=== PATIENT | female | born 1990 | race Caucasian/White ===

== ENCOUNTER 2021-10-15 15:54 | Emergency (ER) | payer OTHER ==
[2021-10-15] MEDS ORDERED: Acetaminophen 500 MG TAB ONE (16:43)
[2021-10-15 17:13] LABS: Bilirubin Neg (Negative); Blood, Urine 10 (Negative); Clarity Clear (Clear); Glucose, Urine (Dipstick) Normal (Negative); Ketone, Urine 50 mg/dL (Negative); Leukocyte Negative (Negative); Nitrite Negative (Negative); Protein, Urine (Dipstick) 15 mg/dl (Neg-Trace); Specific Gravity, Urine 1.005 (1.002-1.036); Urobilinogen Normal mg/dL (Less than 2); pH, Urine 6.5 (5.0-9.0)
[2021-10-15 17:21] LABS: RBC/HPF 0-3 HPF (0-3); WBC/HPF 0-3 HPF (0-3)
[2021-10-15 17:22] LABS: Bacteria/HPF 2+ HPF (None Seen)
[2021-10-15 17:23] LABS: SARS-CoV-2 NAA Rapid Test Not Detected (NotDetected)
== END 2021-10-15 17:55 | disposition home or self-care (01) ==
LOC: CSHERS 15:54
DX: O98.512 Other viral diseases complicating pregnancy, second trimester (principal); B34.9 Viral infection, unspecified; Z3A.20 20 weeks gestation of pregnancy; Z20.822 Contact with and (suspected) exposure to COVID-19
CPT/HCPCS: 71046; 81003; 81015; 87086; U0002

== ENCOUNTER 2022-02-11 11:41 | Outpatient (CLI) | payer OTHER | END 2022-02-11 11:42 | disposition home or self-care (01) | LOC: CSHLAB 11:41 | PROVIDERS: ATTEND Obstetrics & Gynecology | DX: Z01.812 Encounter for preprocedural laboratory examination (principal); Z20.822 Contact with and (suspected) exposure to COVID-19 | CPT/HCPCS: 85014; 85018; 85049; 86780; 86850; 86900; 86901; 87340; U0002 ==

== ENCOUNTER 2022-02-12 09:52 | Inpatient (IN) | payer OTHER ==
[2022-02-11 13:39] LABS: Hemoglobin 11.8 g/dL (12.0-15.5); Platelet Count 315 10x3/uL (150-450)
[2022-02-11 14:05] LABS: SARS-CoV-2 NAA Rapid Test Not Detected (NotDetected)
[2022-02-11 14:08] LABS: Syphilis Antibody Nonreactive (Nonreactive); Syphilis Antibody Index 0.06 S/CO (<1.00 Non-Reactive)
[2022-02-11 14:10] LABS: HBSAg Index 0.17 S/CO (0-0.99); Hep B Surf Ag Non-Reactive S/CO (NonReactive)
[2022-02-12] MEDS ORDERED: Promethazine HCl 25 MG/ML VIAL IM PRN ×2 (10:02→11:59)
[2022-02-12] MEDS ORDERED: Ondansetron PF 4 MG/2 ML Vial IVP PRN ×2 (10:02→11:59)
[2022-02-12] MEDS ORDERED: Famotidine/PF 20 mg/2ml Vial SLOW IVP PRN (10:02)
[2022-02-12] MEDS ORDERED: Bicitra 30 ML UDCUP PO PRN (10:02)
[2022-02-12] MEDS ORDERED: hydrALAZINE 20 MG/ML VIAL SLOW IVP PRN ×2 (10:02→17:40)
[2022-02-12] MEDS ORDERED: CEFAZOLIN 2 GM in Sodium Chloride 0.9% 100 ML IVPB SCH (10:15)
[2022-02-12 10:17] VITALS: BMI 30.2
[2022-02-12] MEDS: Lactated Ringer's 1,000 ML IV SCH ×2 (10:40→11:31)
[2022-02-12 11:10] LABS: Hemoglobin 11.7 g/dL (12.0-15.5); Mean Corpuscular HGB CONC 33.6 g/dL (32.0-36.0); Mean Corpuscular Hemoglobin 28.4 pg (27.0-33.0); Mean Corpuscular Volume 84.5 fl (81.6-98.3); Mean Platelet Volume 10.8 fl (7.4-10.4); Platelet Count 289 10x3/uL (150-450); RBC Distribution Width 14.3 % (11.5-14.5); Red Blood Cell (RBC) Count 4.12 10x6/uL (3.90-5.03); White Blood Cell (WBC) Count 9.4 10x3/uL (3.5-10.5)
[2022-02-12] MEDS ORDERED: Ondansetron PF 4 MG/2 ML Vial ONE (11:45)
[2022-02-12] MEDS ORDERED: Fentanyl 100 MCG/2 ML VIAL ONE (11:45)
[2022-02-12] MEDS ORDERED: Dexamethasone 4 mg/ml Vial ONE (11:45)
[2022-02-12] MEDS ORDERED: Morphine PF 10 MG/10 ML VIAL ONE (11:45)
[2022-02-12] MEDS ORDERED: Phenylephrine 40 MG/NS 250 ML 250 ML ONE (11:46)
[2022-02-12] MEDS ORDERED: Oxytocin 10 UNITS/ML VIAL ONE ×2 (11:46→12:46)
[2022-02-12] MEDS ORDERED: Naloxone HCl 0.4 mg/ml Vial IV PRN (11:59)
[2022-02-12] MEDS ORDERED: Ondansetron HCl/PF 4 MG/2 ML Vial IVP PRN (11:59)
[2022-02-12] MEDS ORDERED: Naloxone HCl 0.4 mg/ml Vial IVP PRN ×2 (11:59)
[2022-02-12] MEDS ORDERED: diphenhydrAMINE 50 MG/ML VIAL IVP PRN (11:59)
[2022-02-12] MEDS ORDERED: Meperidine HCl/PF 25 MG/ML VIAL SLOW IVP PRN (11:59)
[2022-02-12] MEDS ORDERED: Fentanyl 100 MCG/2 ML VIAL SLOW IVP PRN (11:59)
[2022-02-12] MEDS ORDERED: Moisturizing Cream (Eucerin) 113 GM JAR TOP PRN (11:59)
[2022-02-12] MEDS ORDERED: Promethazine HCl 25 MG SUPP PR PRN (11:59)
[2022-02-12] MEDS ORDERED: HYDROmorphone 2 MG/ML VIAL SLOW IVP PRN (11:59)
[2022-02-12] MEDS ORDERED: Ketorolac Tromethamine 30 MG/ML VIAL IVP SCH (12:00)
[2022-02-12] MEDS ORDERED: Communication Order-Pharmacy FS SCH (12:00)
[2022-02-12] MEDS: Ketorolac Tromethamine 30 MG/ML VIAL IVP PRN ×2 (14:04→20:20)
[2022-02-12] MEDS ORDERED: Lanolin Ointment 7 GM TUBE TOP PRN (17:40)
[2022-02-12] MEDS ORDERED: diphenhydrAMINE 25 MG CAP PO PRN (17:40)
[2022-02-12] MEDS ORDERED: Acetaminophen 325 MG TAB PO PRN (17:40)
[2022-02-12] MEDS ORDERED: Bisacodyl 10 MG SUPP PR PRN (17:40)
[2022-02-12] MEDS ORDERED: Zolpidem Tartrate 5 MG TAB PO PRN (17:40)
[2022-02-12] MEDS ORDERED: Ketorolac Tromethamine 30 MG/ML VIAL ONE (20:20)
[2022-02-12] MEDS: Docusate 100 MG CAP PO SCH (22:00)
[2022-02-13 05:19] LABS: Hemoglobin 9.2 g/dL (12.0-15.5); Mean Corpuscular HGB CONC 33.6 g/dL (32.0-36.0); Mean Corpuscular Hemoglobin 28.6 pg (27.0-33.0); Mean Corpuscular Volume 85.1 fl (81.6-98.3); Platelet Count 227 10x3/uL (150-450); RBC Distribution Width 14.1 % (11.5-14.5); Red Blood Cell (RBC) Count 3.22 10x6/uL (3.90-5.03)
[2022-02-13] MEDS: HYDROcodone/Acetaminophen 5/325 mg Tablet PO PRN ×4 (05:27→19:45)
[2022-02-13] MEDS: Ibuprofen 800 MG TAB PO SCH ×4 (07:24→22:00)
[2022-02-13] MEDS: Docusate 100 MG CAP PO SCH ×2 (08:40→22:00)
[2022-02-13] MEDS: Prenatal Vitamin 1 TAB PO SCH (08:40)
[2022-02-13] MEDS: Simethicone Chewable 80 MG TAB PO PRN ×3 (08:40→19:45)
[2022-02-14] MEDS: HYDROcodone/Acetaminophen 5/325 mg Tablet PO PRN ×6 (00:49→22:04)
[2022-02-14] MEDS: Simethicone Chewable 80 MG TAB PO PRN ×2 (05:38→10:12)
[2022-02-14] MEDS: Ibuprofen 800 MG TAB PO SCH ×3 (06:08→22:04)
[2022-02-14] MEDS: Docusate 100 MG CAP PO SCH ×2 (08:03→22:04)
[2022-02-14] MEDS: Prenatal Vitamin 1 TAB PO SCH (08:03)
[2022-02-15] MEDS: HYDROcodone/Acetaminophen 5/325 mg Tablet PO PRN ×3 (03:53→12:15)
[2022-02-15] MEDS: Ibuprofen 800 MG TAB PO SCH (05:03)
[2022-02-15 08:36] VITALS: BP 131/76; TEMP 97.9
[2022-02-15] MEDS: Prenatal Vitamin 1 TAB PO SCH (08:45)
[2022-02-15] MEDS: Docusate 100 MG CAP PO SCH (08:45)
[2022-02-15] MEDS: Simethicone Chewable 80 MG TAB PO PRN (08:51)
[2022-02-15] MEDS ORDERED: Boostrix 0.5 ML (Tdap) VIAL (>/=7 yrs of age) IM ONE (17:40)
== END 2022-02-15 12:40 | disposition home or self-care (01) | DRG 788 ==
LOC: CSHLD 09:52 → CSHPP 21:56
PROVIDERS: ADMIT Obstetrics & Gynecology; ATTEND Obstetrics & Gynecology
PROC: 10D00Z1 Extraction of Products of Conception, Low, Open Approach (ICD-10-PCS; principal; 2022-02-12)
DX: O32.1XX0 Maternal care for breech presentation, not applicable or unspecified (principal); O26.893 Other specified pregnancy related conditions, third trimester; Z67.11 Type A blood, Rh negative; Z3A.39 39 weeks gestation of pregnancy; Z37.0 Single live birth; Z20.822 Contact with and (suspected) exposure to COVID-19; K21.9 Gastro-esophageal reflux disease without esophagitis; J45.909 Unspecified asthma, uncomplicated; O99.52 Diseases of the respiratory system complicating childbirth; O99.62 Diseases of the digestive system complicating childbirth; Z88.1 Allergy status to other antibiotic agents
CPT/HCPCS: 51702; 85014; 85018; 85027; 85049; 86780; 86850; 86900; 86901; 87340; J1100; J1885; J2274; J2405; J2590; J3010; J7120; S0028; U0002

== ENCOUNTER 2023-12-02 14:06 | Inpatient (IN) | payer OTHER ==
[2023-12-02 14:13] LABS: Hematocrit 33.7 % (34.9-44.5); Hemoglobin 11.1 g/dL (12.0-15.5); Platelet Count 297 10x3/uL (150-450)
[2023-12-02 14:35] LABS: HBsAg Index 0.24 S/CO (0-0.99); Hep B Surf Ag Non-Reactive S/CO (NonReactive)
[2023-12-02 14:37] LABS: Syphilis Antibody Nonreactive (Nonreactive); Syphilis Antibody Index 0.08 S/CO (<1.00 Non-Reactive)
[2023-12-03 05:46] VITALS: BMI 29.8
[2023-12-03] MEDS ORDERED: hydrALAZINE 20 MG/ML VIAL SLOW IVP PRN ×2 (05:53→10:44)
[2023-12-03] MEDS ORDERED: Bicitra 30 ML UDCUP PO PRN (05:53)
[2023-12-03] MEDS ORDERED: Carboprost 250 MCG/ML AMP IM PRN (05:53)
[2023-12-03] MEDS ORDERED: Methylergonovine 0.2 MG/ML VIAL IM PRN (05:53)
[2023-12-03] MEDS ORDERED: Misoprostol 200 MCG TAB PR PRN (05:53)
[2023-12-03] MEDS ORDERED: Oxytocin 30 units/NS 500 ML 500 ML IV SCH (05:53)
[2023-12-03] MEDS ORDERED: Promethazine HCl 25 MG/ML VIAL IM PRN ×2 (05:53→08:53)
[2023-12-03] MEDS ORDERED: Tranexamic Acid 1,000 MG/10 ML VIAL IVP PRN (05:53)
[2023-12-03] MEDS ORDERED: Ondansetron PF 4 MG/2 ML Vial IVP PRN ×2 (05:53→08:53)
[2023-12-03] MEDS ORDERED: Diphenoxylate HCl/Atropine Tablet PO PRN ×2 (05:53)
[2023-12-03] MEDS: CEFAZOLIN 2 GM in Sodium Chloride 0.9% 100 ML IVPB SCH (07:04)
[2023-12-03] MEDS: Famotidine/PF 20 mg/2ml Vial SLOW IVP PRN (07:04)
[2023-12-03] MEDS: Lactated Ringer's 1,000 ML IV SCH (07:04)
[2023-12-03] MEDS ORDERED: Naloxone HCl 0.4 mg/ml Vial IV PRN (08:53)
[2023-12-03] MEDS ORDERED: Moisturizing Cream (Eucerin) 113 GM JAR TOP PRN (08:53)
[2023-12-03] MEDS ORDERED: HYDROmorphone 0.5 MG/0.5 ML SYRINGE SLOW IVP PRN (08:53)
[2023-12-03] MEDS ORDERED: fentaNYL 50 mcg/mL 1 mL Vial SLOW IVP PRN (08:53)
[2023-12-03] MEDS ORDERED: diphenhydrAMINE 50 MG/ML VIAL IVP PRN (08:53)
[2023-12-03] MEDS ORDERED: Meperidine HCl/PF 25 MG (1 mL) VIAL SLOW IVP PRN (08:53)
[2023-12-03] MEDS ORDERED: Naloxone HCl 0.4 mg/ml Vial IVP PRN ×2 (08:53)
[2023-12-03] MEDS ORDERED: Communication Order-Pharmacy FS SCH (09:00)
[2023-12-03] MEDS ORDERED: Ketorolac Tromethamine 30 MG (1 mL) VIAL IVP SCH (09:30)
[2023-12-03] MEDS ORDERED: Acetaminophen 325 MG TAB PO PRN (10:44)
[2023-12-03] MEDS: Erythromycin Base 0.5% Oint 1 GM TUBE ONE (11:13)
[2023-12-03] MEDS: Morphine PF 10 MG/10 ML VIAL ONE (11:13)
[2023-12-03] MEDS: Promethazine HCl 25 MG/ML VIAL ONE (11:13)
[2023-12-03] MEDS: Phytonadione Neonatal 1 MG/0.5 ML AMP ONE (11:13)
[2023-12-03] MEDS: Oxytocin 10 UNITS/ML VIAL ONE ×2 (11:13)
[2023-12-03] MEDS: Ondansetron PF 4 MG/2 ML Vial ONE (11:13)
[2023-12-03] MEDS: Ketorolac Tromethamine 30 MG (1 mL) VIAL IVP PRN (15:14)
[2023-12-03] MEDS ORDERED: Boostrix 0.5 ML (Tdap) VIAL (>/=7 yrs of age) IM ONE (21:00)
[2023-12-03] MEDS: HYDROcodone/Acetaminophen 5/325 mg Tablet PO PRN (23:36)
[2023-12-04 04:08] LABS: Hematocrit 29.7 % (34.9-44.5); Hemoglobin 9.6 g/dL (12.0-15.5); Mean Corpuscular HGB CONC 32.3 g/dL (32.0-36.0); Mean Corpuscular Hemoglobin 27.6 pg (27.0-33.0); Mean Corpuscular Volume 85.3 fL (81.6-98.3); Mean Platelet Volume 10.1 fL (7.4-10.4); Platelet Count 222 10x3/uL (150-450); RBC Distribution Width 13.9 % (11.5-14.5); Red Blood Cell (RBC) Count 3.48 10x6/uL (3.90-5.03)
[2023-12-04] MEDS: HYDROcodone/Acetaminophen 5/325 mg Tablet PO PRN (08:31)
[2023-12-04] MEDS: Docusate 100 MG CAP PO SCH (08:31)
[2023-12-04] MEDS: Prenatal Vitamin 1 TAB PO SCH (08:31)
[2023-12-04] MEDS: Ondansetron PF 4 MG/2 ML Vial IVP PRN (11:05)
[2023-12-04] MEDS: Ibuprofen 800 MG TAB PO SCH (13:12)
[2023-12-04] MEDS: Simethicone Chewable 80 MG TAB PO PRN (13:55)
[2023-12-04] MEDS: diphenhydrAMINE 30 GM TUBE TOP PRN (17:42)
[2023-12-05 07:43] VITALS: BP 117/61; TEMP 98.2
== END 2023-12-05 11:35 | disposition home or self-care (01) | DRG 788 ==
LOC: CSHLD 12-03 05:43 → CSHPP 12-03 10:50
PROVIDERS: ADMIT Obstetrics & Gynecology; ATTEND Obstetrics & Gynecology
PROC: 10D00Z1 Extraction of Products of Conception, Low, Open Approach (ICD-10-PCS; principal; 2023-12-03)
DX: O34.211 Maternal care for low transverse scar from previous cesarean delivery (principal); Z3A.40 40 weeks gestation of pregnancy; O48.0 Post-term pregnancy; Z37.0 Single live birth; Z88.1 Allergy status to other antibiotic agents
CPT/HCPCS: 36415; 51702; 85014; 85018; 85027; 85049; 85461; 86780; 86850; 86900; 86901; 87340; 90384; 96372; J1885; J2274; J2405; J2550; J2590; J3490; J7120